=== PATIENT | male | born 2000 | race Two or more races ===

== ENCOUNTER → 2025-03-15 | Emergency (ER) | payer OTHER ==
[~2025-03-15] VITALS: Ht 175.3 cm; Wt 95.3 kg
[~2025-03-15] MED LIST: AMOX250; DEXAMETHAS0.5 MG/5 M; DIATRIZOATE MEGLUMINE, SODIUM 30 ML BOTTLE ONE; FAMOTIDINE/PF 20 MG/2 ML VIAL ONE; FAMOtidine 10 MG/ML (4ML VIAL) IV ONE; FOCALIN2.5 MG PO; HYOSCYAMINE0.125 M2; PEPCID AC20 MG; PROTONIX40 M1 PO; SUCRALFATE 1 G TABLET PO ONE
[2025-03-15 12:49] VITALS: BP 139/85; O2SAT 99
== END | disposition left against medical advice (07) ==
LOC: ER 12:17
DX: R10.9 Unspecified abdominal pain (principal); Z91.018 Allergy to other foods
CPT/HCPCS: 74177; Q9965